=== PATIENT | male | born 1975 | race Caucasian/White ===

== ENCOUNTER 2023-07-10 14:04 | Emergency (ER) | payer SELFPAY ==
[~2023-07-10] VITALS: Ht 172.7 cm; Wt 90.0 kg
[2023-07-10 14:37] VITALS: O2SAT 100
[2023-07-10 19:33] VITALS: BP 109/77; PULSE 95; RESP 16; TEMP 98.4
== END 2023-07-10 20:16 | disposition home or self-care (01) ==
LOC: ER 14:54
DX: J06.9 Acute upper respiratory infection, unspecified (principal); Z88.0 Allergy status to penicillin
CPT/HCPCS: 71045; 99283